=== PATIENT | male | born 1975 | race Caucasian/White ===

== ENCOUNTER 2016-12-11 06:02 | Day surgery (SDC) | payer OTHER ==
[~2016-12-11] VITALS: Ht 177.8 cm; Wt 95.2 kg
[2016-12-11 06:27] VITALS: BP 172/98
[2016-12-11 11:54] VITALS: BP 157/105
== END 2016-12-11 11:25 | disposition home or self-care (01) ==
LOC: DS 06:02
PROVIDERS: Neuromusculoskeletal Medicine, Sports Medicine
PROC: 0SBD4ZZ Excision of Left Knee Joint, Percutaneous Endoscopic Approach (ICD-10-PCS; principal; 2016-12-11 07:30)
DX: S83.212A Bucket-handle tear of medial meniscus, current injury, left knee, initial encounter (principal); X50.0XXA Overexertion from strenuous movement or load, initial encounter; Y92.69 Other specified industrial and construction area as the place of occurrence of the external cause
CPT/HCPCS: J0690; J1170; J2250; J2405; J2704; J3010; J3490; J7120